=== PATIENT | female | born 1955 | race Two or more races ===

== ENCOUNTER → 2021-07-04 | Outpatient (CLI) | payer SELFPAY ==
[2021-07-04 18:19] LABS: Albumin, Serum 3.4 g/dL (3.2-5.0); Phosphorus 2.4 mg/dL (2.5-4.9)
[2021-07-04 19:58] LABS: Calcium,Total 9.9 mg/dL (8.5-10.1)
== END | disposition home or self-care (01) ==
LOC: LABSPEC 17:57
PROVIDERS: PCP Internal Medicine; Visit Provider Internal Medicine Nephrology
DX: E83.52 Hypercalcemia (principal); N18.6 End stage renal disease
CPT/HCPCS: 82040; 82310; 84100